=== PATIENT | male | born 1970 | race African-American/Black ===

== ENCOUNTER 2017-08-26 19:34 | Emergency (ER) | payer MEDICAID ==
[2017-08-26] MEDS ORDERED: Cyclobenzaprine 10 MG Tab ONE (19:55)
[2017-08-26] MEDS ORDERED: Ibuprofen 800 MG Tab ONE (19:55)
--- NOTE | 2017-08-27 04:13 | ER ---
HISTORY OF PRESENT ILLNESS: The patient is a 47-year-old male who comes in today with a three-day history of right-sided lower back pain. He notes he does have pain radiating down the left leg, sometimes his leg goes numb when he stands up, and the pain radiates down the leg. The patient denies any history of injury. He notes he woke up with his back sore. He has been taking some Excedrin, some Tylenol, and some Advil PM but not consistently. ALLERGIES: NKDA. CURRENT MEDICATIONS: BuSpar 75 mg p.o. daily and Norvasc 5 mg p.o. daily. The patient does note he is not sure if he took his Norvasc this morning. PAST MEDICAL HISTORY: Significant for gastroesophageal reflux disease, hypertension, and anxiety. PAST SURGICAL HISTORY: The patient has not had any surgeries. SOCIAL HISTORY: He smokes a pack a day, but does not drink. PHYSICAL EXAMINATION: GENERAL: He is alert, oriented, in no apparent distress. VITAL SIGNS: Blood pressure is slightly elevated at 147/107. Other vitals are stable. EXTREMITIES: His straight leg raise is negative on the right and on the left, he has some discomfort in the back, but no pain radiating down the leg. ASSESSMENT: Low back pain. PLAN: I have given him some ibuprofen 800 mg 1 p.o. q.8 and some Flexeril 5 mg 1 p.o. q.8 p.r.n. I have recommended he use a heating pad. We will have him follow up in a week or so in clinic with his regular physician, Dr. Charles. If he develops worsening symptoms, we will have him return to clinic sooner. CELINA/HARVEY /[id number]
== END 2017-08-26 20:05 | disposition home or self-care (01) ==
LOC: LB.ED 19:34
DX: M54.5 Low back pain (principal); K21.9 Gastro-esophageal reflux disease without esophagitis
CPT/HCPCS: 99283; A9270-GY

== ENCOUNTER 2019-02-26 19:17 | Emergency (ER) | payer MEDICAID ==
--- NOTE | 2019-02-26 19:45 | EDM.PDOC ---
ED HPI GENERAL MEDICAL PROBLEM - General Chief Complaint: Laceration Stated Complaint: LACERATION Time Seen by Provider: 02/26/19 19:20 Source of Information: Reports: Patient History Limitations: Reports: No Limitations - History of Present Illness INITIAL COMMENTS - FREE TEXT/NARRATIVE: This patient presents to the ED for evaluation of a laceration to his left thumb. He was cutting onions when the laceration occurred. Onset: Today, Sudden Location: Reports: Upper Extremity, Left - Related Data Allergies Allergy/AdvReac Type Severity Reaction Status Date / Time No Known Allergies Allergy Verified 08/26/17 19:37 Home Meds: Home Meds amLODIPine Besylate [Amlodipine Besylate] 1 tab PO DAILY 08/26/17 [History] busPIRone HCl [Buspirone HCl] 1 tab PO BID 08/26/17 [History] Past Medical History Cardiovascular History: Reports: Hypertension Gastrointestinal History: Reports: GERD Psychiatric History: Reports: Anxiety - Infectious Disease History Infectious Disease History: Reports: Chicken Pox Social & Family History - Family History Family Medical History: Noncontributory - Caffeine Use Caffeine Use: Reports: Coffee, Soda ED ROS GENERAL - Review of Systems Review Of Systems: See Below Constitutional: Reports: No Symptoms HEENT: Reports: No Symptoms Respiratory: Reports: No Symptoms Cardiovascular: Reports: No Symptoms GI/Abdominal: Reports: No Symptoms Neurological: Reports: Other (carlieramiguel) Psychiatric: Reports: No Symptoms ED EXAM, SKIN/RASH Exam: See Below Exam Limited By: No Limitations General Appearance: Alert, WD/WN, Moderate Distress Eye Exam: Bilateral Eye: PERRL Ears: Normal External Exam Nose: Normal Inspection Head: Atraumatic, Normocephalic Neck: Normal Inspection, Full Range of Motion Respiratory/Chest: No Respiratory Distress Extremities: Normal Inspection, Normal Range of Motion, Normal Capillary Refill Neurological: Alert, Oriented Psychiatric: Normal Affect, Normal Mood Skin: Warm, Dry, Other (0.5 cm superficial laceration to palmar surface left 1st digit, digtal edge; no involvemen of nailbed.) ED SKIN PROCEDURES - Laceration/Wound Repair Left Distal Digit - 1st (Thumb) Appearance: Superficial, Clean Distal NVT: Neuro & Vascular Intact Anesthetic Type: Other (none) Closed with: Dermabond Lac/Wound length In cm: 0.5 (superficial flap) Sterile Dressing Applied: Provider Tetanus Status Addressed: Other (patient states UTD) Complications: No Course - Vital Signs Text/Narrative:: This patient presents with a laceration to distal palmar surface left 1st digit. The wound was carefully evaluated and explored. The laceration was closed with dermabond as noted above. There is no evidence of muscular, tendon, or bony damage with this laceration. No signs of foreign body. Possible complications (infection, scarring) were reviewed with the patient. Follow up with primary care will be as needed and as noted in the discharge section. Last Recorded V/S: Last Vital Signs Temp 36.4 C 02/26/19 19:20 Pulse 80 02/26/19 19:20 Resp 16 02/26/19 19:20 BP 135/98 H 02/26/19 19:20 Pulse Ox 99 02/26/19 19:20 Departure - Departure Time of Disposition: 19:45 Disposition: Home, Self-Care 01 Condition: Good Clinical Impression: Broken skin - Discharge Information Instructions: Laceration Care, Adult, [id number] Referrals: PCP,None [Primary Care Provider] - Forms: ED Department Discharge Care Plan Goals: Keep wound clean and dry. Keep dressing on for the next 2 days, may take off then take off, may put a bandaid on at that time. return to hospital or clinic with any questions or concerns.
== END 2019-02-26 19:45 | disposition home or self-care (01) ==
LOC: LB.ED 19:17
DX: S61.012A Laceration without foreign body of left thumb without damage to nail, initial encounter (principal); I10 Essential (primary) hypertension; F41.9 Anxiety disorder, unspecified; Z79.899 Other long term (current) drug therapy; W26.0XXA Contact with knife, initial encounter; Y93.G9 Activity, other involving cooking and grilling
CPT/HCPCS: 12001; 99282-25

== ENCOUNTER 2020-01-01 12:58 | Emergency (ER) | payer OTHER, MEDICAID ==
[2020-01-01] MEDS ORDERED: Acetaminophen/oxyCODONE 325-5 MG Tab ONE ×2 (13:43→13:57)
--- NOTE | 2020-01-01 14:06 | EDM.PDOC ---
ED HPI GENERAL MEDICAL PROBLEM - General Chief Complaint: General Stated Complaint: CUT FINGER AT WORK Time Seen by Provider: 01/01/20 13:30 Source of Information: Reports: Patient History Limitations: Reports: No Limitations - History of Present Illness INITIAL COMMENTS - FREE TEXT/NARRATIVE: Patient is a 49 y/o male who presents for left ring finger tip avulsion/laceration that occurred prior to arrival. He was slicing meat in the deli and accidently got his finger caught in it. Patient is up-to-date on his tetanus. Bleeding controlled by the time he got to the emergency department. Onset: Today, Sudden Treatments RECORD TESTER: Reports: Dressing(s) - Related Data Allergies Allergy/AdvReac Type Severity Reaction Status Date / Time No Known Allergies Allergy Verified 08/26/17 19:37 Home Meds: Home Meds amLODIPine Besylate [Amlodipine Besylate] 1 tab PO DAILY 08/26/17 [History] busPIRone HCl [Buspirone HCl] 1 tab PO BID 08/26/17 [History] Past Medical History Cardiovascular History: Reports: Hypertension Gastrointestinal History: Reports: GERD Psychiatric History: Reports: Anxiety - Infectious Disease History Infectious Disease History: Reports: Chicken Pox Social & Family History - Family History Family Medical History: Noncontributory - Tobacco Use Smoking Status *Q: Current Every Day Smoker Years of Tobacco use: 26 Packs/Tins Daily: 0.5 - Caffeine Use Caffeine Use: Reports: Coffee, Energy Drinks - Recreational Drug Use Recreational Drug Use: No ED ROS GENERAL - Review of Systems Review Of Systems: See Below Constitutional: Reports: No Symptoms Respiratory: Reports: No Symptoms Cardiovascular: Reports: No Symptoms Skin: Reports: Wound, Other (avulsion to left ring finger tip) Neurological: Reports: No Symptoms ED EXAM, GENERAL - Physical Exam Exam: See Below Free Text/Narrative:: 1.0 cm gaping, subcutaneous, laceration/avulsion to tip of left ring finger; bleeding controlled; no foreign bodies; no sensational loss; FROM of finger and hand Exam Limited By: No Limitations General Appearance: Alert, No Apparent Distress Head: Atraumatic, Normocephalic Neck: Normal Inspection Respiratory/Chest: No Respiratory Distress Neurological: Alert, Oriented, No Motor/Sensory Deficits Skin Exam: Warm, Dry, Wound/Incision ED GENERAL MEDICAL PROCEDURES - Laceration/Wound Repair Left Digit - 4th (Ring) Lac/wound length in cm: 1.0 Appearance: Subcutaneous Distal NVT: Neuro & Vascular Intact, No Tendon Injury Anesthetic Type: Digital Local Anesthesia - Lidocaine (Xylocaine): 2% Plain Local Anesthesia - Bupivicaine (Marcaine): 0.5% Plain Local Anesthetic Volume: 5cc Skin Prep: Isopropyl Alcohol (Alcohol), Saline, Sterile Drape Exploration/Debridement/Repair: Wound Explored, No Foreign Material Found Closed with: Sutures Suture Size: 4-0 # of Sutures: 3 Suture Type: Prolene, Interrupted, Simple Course - Vital Signs Last Recorded V/S: Last Vital Signs Temp 35.9 C L 01/01/20 13:16 Pulse 84 01/01/20 13:16 Resp 18 01/01/20 13:16 BP 134/94 H 01/01/20 13:16 Pulse Ox 98 01/01/20 13:16 - Orders/Labs/Meds Meds: Medications Discontinued Medications Generic Name Dose Route Start Last Admin Trade Name Carolyn PRN Reason Stop Dose Admin Oxycodone/Acetaminophen Confirm 01/01/20 13:43 Percocet 325-5 Mg Administered 01/01/20 13:44 Dose 1 tab .ROUTE .STK-MED ONE Oxycodone/Acetaminophen Confirm 01/01/20 13:57 Percocet 325-5 Mg Administered 01/01/20 13:58 Dose 2 tab .ROUTE .STK-MED ONE Departure - Departure Time of Disposition: 14:05 Disposition: Home, Self-Care 01 Condition: Good Clinical Impression: Laceration - Discharge Information *PRESCRIPTION DRUG MONITORING PROGRAM REVIEWED*: No *COPY OF PRESCRIPTION DRUG MONITORING REPORT IN PATIENT ALPHONSO: No Referrals: PCP,None [Primary Care Provider] - Additional Instructions: Have sutures removed in 10 days. No dishwashing, meat slicing, or getting wound wet x 3 days. Return to the ED for any signs of infection (redness, swelling, purulent drainage, fever) Sepsis Event Note (ED) - Evaluation Sepsis Screening Result: No Definite Risk - Focused Exam Vital Signs: Vital Signs Temp Pulse Resp BP Pulse Ox 01/01/20 13:16 35.9 C L 84 18 134/94 H 98
== END 2020-01-01 14:10 | disposition home or self-care (01) ==
LOC: LB.ED 12:58
DX: S61.215A Laceration without foreign body of left ring finger without damage to nail, initial encounter (principal); F17.210 Nicotine dependence, cigarettes, uncomplicated; I10 Essential (primary) hypertension; F41.9 Anxiety disorder, unspecified; Z79.899 Other long term (current) drug therapy; W26.8XXA Contact with other sharp object(s), not elsewhere classified, initial encounter
CPT/HCPCS: 12001; 99282

== ENCOUNTER 2020-11-23 06:48 | Emergency (ER) | payer MEDICAID ==
[2020-11-23] MEDS ORDERED: cefTRIAXone 500 MG Vial IM ONE (07:26)
[2020-11-23] MEDS ORDERED: Azithromycin 250 MG Tab PO ONE (07:27)
--- NOTE | 2020-11-23 07:42 | EDM.PDOC ---
ED HPI GENERAL MEDICAL PROBLEM - General Chief Complaint: Genitourinary Problem Stated Complaint: POSSIBLE STD Time Seen by Provider: 11/23/20 07:00 - History of Present Illness INITIAL COMMENTS - FREE TEXT/NARRATIVE: Pt comes in with C/O penile drainage for 3-4 days. He tells me he did have sex with someone 8 days ago, and the symptoms started later. He also has mild dysuria. No fever. - Related Data Allergies Allergy/AdvReac Type Severity Reaction Status Date / Time No Known Allergies Allergy Verified 11/23/20 07:02 Home Meds: Home Meds amLODIPine Besylate [Amlodipine Besylate] 1 tab PO DAILY 08/26/17 [History] busPIRone HCl [Buspirone HCl] 1 tab PO BID 08/26/17 [History] Past Medical History - Past Health History Medical/Surgical History: Denies Medical/Surgical History Cardiovascular History: Reports: Hypertension Gastrointestinal History: Reports: GERD Psychiatric History: Reports: Anxiety Hematologic History: Reports: None - Infectious Disease History Infectious Disease History: Reports: Chicken Pox Social & Family History - Family History Family Medical History: No Pertinent Family History - Tobacco Use Years of Tobacco use: 20 Packs/Tins Daily: 1 - Caffeine Use Caffeine Use: Reports: Coffee, Energy Drinks - Recreational Drug Use Drug Use in Last 12 Months: Yes Recreational Drug Type: Reports: Marijuana/Hashish Recreational Drug Use Frequency: Rarely ED ROS GENERAL - Review of Systems Review Of Systems: Comprehensive ROS is negative, except as noted in HPI. : Reports: Discharge ED EXAM, RENAL/ - Physical Exam Exam: See Below (Male) Exam: Urethral Discharge (that is white in color. No pain of the testes with palpation.) Course - Vital Signs Last Recorded V/S: Last Vital Signs Temp 97.7 F 11/23/20 07:03 Pulse 81 11/23/20 07:03 Resp 18 11/23/20 07:03 BP 153/114 H 11/23/20 07:27 Pulse Ox 98 11/23/20 07:03 - Orders/Labs/Meds Orders: Active Orders 24 hr Category Date Time Status CHLAMYDIA/GC AMPLIFICATION Stat Lab 11/23/20 07:25 Ordered UA W/MICROSCOPIC [URIN] Stat Lab 11/23/20 07:25 Ordered Meds: Medications Discontinued Medications Generic Name Dose Route Start Last Admin Trade Name Freq PRN Reason Stop Dose Admin Azithromycin 1,000 mg 11/23/20 07:27 Azithromycin 250 Mg Tab PO 11/23/20 07:28 ONETIME ONE Ceftriaxone Sodium 500 mg 11/23/20 07:26 Ceftriaxone 500 Mg Vial IM 11/23/20 07:27 ONETIME ONE - Re-Assessments/Exams Free Text/Narrative Re-Assessment/Exam: 11/23/20 07:40 UA and a GC culture were ordered. Rocephin 500 given IM and Zithromax 1 GM po. No sexual activity until the test results are in. I will treat his after the results are in, or she could see her PCP earlier if she wants to. Departure - Departure Time of Disposition: 07:45 Disposition: Home, Self-Care 01 Condition: Good Clinical Impression: Concern about STD in male without diagnosis - Discharge Information *PRESCRIPTION DRUG MONITORING PROGRAM REVIEWED*: Not Applicable *COPY OF PRESCRIPTION DRUG MONITORING REPORT IN PATIENT ALPHONSO: Not Applicable Referrals: PCP,None [Primary Care Provider] - Additional Instructions: No sexual activity until test results are back. Call Sunday to check on results. Sepsis Event Note (ED) - Evaluation Sepsis Screening Result: No Definite Risk - Focused Exam Vital Signs: Vital Signs Temp Pulse Resp BP Pulse Ox 11/23/20 07:27 153/114 H 11/23/20 07:03 97.7 F 81 18 151/100 H 98 - My Orders Last 24 Hours: My Active Orders 11/23/20 07:25 CHLAMYDIA/GC AMPLIFICATION Stat UA W/MICROSCOPIC [URIN] Stat - Assessment/Plan Last 24 Hours: My Active Orders 11/23/20 07:25 CHLAMYDIA/GC AMPLIFICATION Stat UA W/MICROSCOPIC [URIN] Stat
[2020-11-25 21:10] LABS: CHLAMYDIA TRACHOMATIS, NAA Negative (Negative); NEISSERIA GONORRHOEAE, NAA Negative (Negative)
== END 2020-11-23 07:52 | disposition home or self-care (01) ==
LOC: LB.ED 06:48
DX: Z20.2 Contact with and (suspected) exposure to infections with a predominantly sexual mode of transmission (principal); I10 Essential (primary) hypertension; Z72.0 Tobacco use; Z79.899 Other long term (current) drug therapy
CPT/HCPCS: 81001; 87491; 87591; 96372; 99283; A9270; J0696

== ENCOUNTER 2022-08-18 11:36 | Emergency (ER) | payer MEDICAID ==
[2022-08-18] MEDS ORDERED: Ketorolac 60 MG/2 ML SDV IM ONE (11:48)
[2022-08-18] MEDS ORDERED: Ketorolac 60 MG/2 ML SDV ONE (11:54)
== END 2022-08-18 12:15 | disposition home or self-care (01) ==
LOC: LB.ED 11:36
DX: K04.7 Periapical abscess without sinus (principal); K02.9 Dental caries, unspecified; I10 Essential (primary) hypertension; K21.9 Gastro-esophageal reflux disease without esophagitis; Z79.899 Other long term (current) drug therapy
CPT/HCPCS: 96372; 99282; J1885

== ENCOUNTER 2024-12-15 05:49 | Emergency (ER) | payer MEDICAID ==
[2024-12-15] MEDS: Ondansetron 4 MG/2 ML SDV IVPUSH ONE (06:00)
[2024-12-15] MEDS ORDERED: Sodium Chloride 0.9% 10 ML Syringe FLUSH PRN (06:01)
[2024-12-15] MEDS: Ondansetron 4 MG/2 ML SDV ONE (06:06)
[2024-12-15] MEDS: GI Cocktail Oral Solution 30 ML PO ONE (06:10)
[2024-12-15 06:22] LABS: BASOPHILS ABSOLUTE AUTO 0.03 K/uL (0.02-0.10); BASOPHILS PERCENT AUTO 0.3 % (0.0-0.5); EOSINOPHILS ABSOLUTE AUTO 0.32 K/uL (0.04-0.40); EOSINOPHILS PERCENT AUTO 3.2 % (1.0-5.0); LYMPHOCYTES ABSOLUTE AUTO 4.36 K/uL (1.50-4.00); LYMPHOCYTES PERCENT AUTO 43.8 % (20.0-40.0); MEAN PLATELET VOLUME 11.3 fL (6.0-10.0); MONOCYTES ABSOLUTE AUTO 0.85 K/uL (0.20-0.80); MONOCYTES PERCENT AUTO 8.5 % (3.0-10.0); NEUTROPHILS ABSOLUTE AUTO 4.39 K/uL (2.00-7.50); NEUTROPHILS PERCENT AUTO 44.2 % (45.0-70.0); PLATELET COUNT,PLT 235 K/uL (150-400); RED BLOOD CELL COUNT 4.66 M/uL (4.50-6.50); RED CELL DISTRIBUTION WIDTH 13.4 % (11.0-16.0); WHITE BLOOD CELL COUNT,WBC 10.0 K/uL (4.0-11.0)
[2024-12-15 06:27] LABS: APPEARANCE,URINE CLEAR (CLEAR); GLUCOSE,URINE NEGATIVE (NEGATIVE); OCCULT BLOOD,URINE SMALL (NEGATIVE)
[2024-12-15 06:31] LABS: A/G RATIO 1.0 (0.8-2.0); ALANINE AMINOTRANSFERASE,ALT 53 U/L (12-78); ASPARTATE AMNIOTRANSFERASE,AST 22 U/L (15-37); BILIRUBIN TOTAL 0.3 mg/dL (0.0-1.0); BLOOD UREA NITROGEN,BUN 15 mg/dL (8-26); CARBON DIOXIDE,CO2 25.8 mmol/L (21.0-32.0); CHLORIDE,CL 104 mmol/L (98-107); CREATININE 1.18 mg/dL (0.70-1.30); EST CRCL DRUG DOSING (CG) 77.11 mL/min; ESTIMATED GFR 74 mL/min (>60); GLUCOSE RANDOM 150 mg/dL (74-100); PROTEIN TOTAL,TP 7.2 g/dL (6.4-8.2); SODIUM,NA 141 mmol/L (136-145); TROPONIN I HIGH SENSITIVITY 7.3 pg/ml (<=60.4)
[2024-12-15 06:32] LABS: POTASSIUM,K 2.8 mmol/L (3.5-5.1)
[2024-12-15] MEDS: Prochlorperazine 10 MG/2 ML SDV IVPUSH ONE (06:47)
[2024-12-15] MEDS: Iopamidol 612 MG/ML 100 ML Bottle IV SCH (07:22)
[2024-12-15] MEDS: Sodium Chloride 0.9% 50 ML SDV FLUSH ONE (07:23)
[2024-12-15] MEDS: Ketorolac 15 MG/ML SDV IVPUSH ONE (07:41)
[2024-12-15] MEDS: Potassium Chloride 20 MEQ Tab.ER PO ONE (11:31)
== END 2024-12-15 08:55 | disposition home or self-care (01) ==
LOC: LB.ED 05:49
DX: N20.1 Calculus of ureter (principal); I10 Essential (primary) hypertension; K21.9 Gastro-esophageal reflux disease without esophagitis; Z79.899 Other long term (current) drug therapy
CPT/HCPCS: 36415; 74177; 80053; 81001; 83605; 83690; 84484; 85025; 86140; 96361; 96365; 96375; 96376; 99284; A9270; J0780; J1885; J2270; J2405; J3480; J7030; Q9967

== ENCOUNTER 2024-12-25 08:20 | Emergency (ER) | payer MEDICAID ==
[2024-12-25 09:34] VITALS: BP 153/114; PULSE 74
== END 2024-12-25 09:41 | disposition home or self-care (01) ==
LOC: LB.ED 08:20
DX: I10 Essential (primary) hypertension (principal); K29.50 Unspecified chronic gastritis without bleeding; K21.9 Gastro-esophageal reflux disease without esophagitis; F17.210 Nicotine dependence, cigarettes, uncomplicated
CPT/HCPCS: 99283; 99284; J2003